=== PATIENT | female | born 1965 | race African-American/Black ===

== ENCOUNTER 2017-11-09 08:14 | Outpatient (CLI) | payer SELFPAY | END 2017-11-09 08:15 | disposition home or self-care (01) | LOC: BICRAD 08:14 | PROVIDERS: ATTEND Nurse Practitioner Family | DX: Z11.1 Encounter for screening for respiratory tuberculosis (principal) | CPT/HCPCS: 71046 ==

== ENCOUNTER 2019-08-09 13:31 | Emergency (ER) | payer SELFPAY ==
[2019-08-09] MEDS ORDERED: Acetaminophen 325 MG TAB ONE (14:36)
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
== END 2019-08-09 15:42 | disposition home or self-care (01) ==
LOC: ERS 13:31
DX: S16.1XXA Strain of muscle, fascia and tendon at neck level, initial encounter (principal); I10 Essential (primary) hypertension; Z79.899 Other long term (current) drug therapy; Z79.82 Long term (current) use of aspirin; V43.52XA Car driver injured in collision with other type car in traffic accident, initial encounter
CPT/HCPCS: 72125; 72128; L0120